=== PATIENT | female | born 1950 | race Caucasian/White ===

== ENCOUNTER 2018-03-22 10:57 | Emergency (ER) | payer OTHER, MEDICARE ==
[~2018-03-22] VITALS: Ht 167.6 cm; Wt 68.0 kg
[~2018-03-22 10:57] MED LIST: TRAMADOL HCL50 M1 PO
--- NOTE | 2018-03-22 11:21 | ED UPPER/LOWER EXTREMITY COMPL ---
History of Present Illness General Chief Complaint: Shoulder Injury Stated Complaint: LT SHOULDER PAIN NO INJURY Source: patient Exam Limitations: no limitations Vital Signs & Intake/Output Vital Signs & Intake/Output Vital Signs Date Time Temp Pulse Resp B/P B/P Pulse O2 O2 Flow FiO2 Mean Ox Delivery Rate 03/22 1335 95 Room Air 03/22 1329 97.4 78 18 164/86 95 Room Air 03/22 1120 98.2 83 16 167/88 98 Room Air Room Air Allergies Coded Allergies: cortisone (Intermediate, RED RASH 06/19/17) prednisone (Intermediate, RED RASH 06/19/17) Reconcile Medications Cyclobenzaprine HCl 10 MG TABLET 1 TAB PO TID SPASMS Oxycodone HCl/Acetaminophen (Percocet 5-325 MG Tablet) 5 MG-325 MG TABLET 1-2 TAB PO BID pain Tramadol HCl 50 MG TABLET 1 TAB PO Q6P PRN pain Triage Note: PT TO TRIAGE FOR LEFT SHOULDER PAIN. PAIN STARTED MONDAY AND INCREASED TO MONDAY. PT STATES IT GOT BETTER YESTERDAY BUT TODAY IS MUCH WORSE. PAIN IS FROM HER NECK TO HER LEFT DELTOID PT HAS A PHX HTN Triage Nurses Notes Reviewed? yes Onset: Abrupt Duration: day(s): Timing: recent history Severity: moderate, severe Pain/Injury Location: Bilateral: Shoulder, Other (NECK). Method of Injury: unknown No Modifying Factors: none HPI: 67-year-old female comes into the emergency room for further evaluation of left shoulder pain. Patient reports that the symptoms started over this past weekend. They got better yesterday and then worse today. She denies any injury. Pain is located on the left posterior aspect of her shoulder and radiates up into her neck area. It is worse with certain movements. She's been taking Advil at home with no relief. She denies any falls or trauma. Denies any fever chills. Comes in for further evaluation. Past History Travel History Traveled to [place] past 21 day No Medical History Any Pertinent Medical History? see below for history Neurological: NONE EENT: NONE Cardiovascular: hypertension Respiratory: NONE Gastrointestinal: NONE Hepatic: NONE Renal: NONE Musculoskeletal: NONE Psychiatric: anxiety Endocrine: NONE Blood Disorders: NONE Cancer(s): BASAL AND SQUAMUS CELL LATHE HAND/Reproductive: NONE Surgical History Surgical History: none Psychosocial History What is your primary language Irish Tobacco Use: Never used ETOH Use: denies use Illicit Drug Use: denies illicit drug use Family History Hx Contributory? No Review of Systems Review of Systems Constitutional: Reports: no symptoms. EENTM: Reports: no symptoms. Respiratory: Reports: no symptoms. Cardiovascular: Reports: no symptoms. Gastrointestinal/Abdominal: Reports: no symptoms. Genitourinary: Reports: no symptoms. Musculoskeletal: Reports: see HPI. Skin: Reports: no symptoms. Neurological/Psychological: Reports: no symptoms. Hematologic/Endocrine: Reports: no symptoms. Immunological: Reports: no symptoms. All Other Systems: Reviewed and Negative Physical Exam Physical Exam General Appearance: well developed/nourished, mild distress Head: atraumatic Eyes: Bilateral: normal appearance. Ears, Nose, Throat: normal ENT inspection, hearing grossly normal Neck: normal inspection, supple, full range of motion Cardiovascular/Respiratory: no respiratory distress Back: normal inspection Shoulder Left: soft tissue tenderness, tenderness over left trapezius muscle, full range of motion, negative empty can, negative [place] and apprehension test , Neurologic/Tendon: normal sensation, normal motor functions, normal tendon functions, responds to pain, no evidence tendon injury, no pulse deficit Skin: intact, normal color, warm/dry Progress Differential Diagnosis: dislocation, fracture, sprain, tendon injury, muscle strain, cervical disc herniation Plan of Care: Orders Procedure Date/time Status Durable Medical Equipment 03/22 1317 Active Diagnostic Imaging: Viewed by Me: Radiology Read. Discussed w/RAD: Radiology Read. Radiology Impression: PATIENT: RAKEL CORREIA PRESENT AGE: 67 PATIENT ACCOUNT NO: [id number] : 48 LOCATION: [facility] ORDERING PHYSICIAN: Hernandez HAHN SERVICE DATE: 03/22/18 EXAM TYPE : RAD - XRY-CERV SPINE 4 OR 5 VIEWS; XRY-SHOULDER COMPLETE-LEFT EXAMINATION: XR CERVICAL SPINE XR SHOULDER, LEFT CLINICAL INFORMATION: 67-year-old female presented with neck and shoulder pain. COMPARISON: None. TECHNIQUE: 5 views of the cervical spine and 4 views of the left shoulder were obtained. FINDINGS: CERVICAL SPINE: Grade 1 anterolisthesis of C4 over C5 and C5 over C6. The height of the cervical vertebrae are well maintained. The posterior appendages are intact. [id number] degenerative spondylosis is seen at C6-C7 and mild degenerative spondylosis at C5-C6. The prevertebral soft tissues are unremarkable. Moderate bilateral foraminal narrowing is noted at C3-C4 through C7-T1. The C1-C2 alignment is intact. Both lung apices are clear. LEFT SHOULDER: The glenohumeral and acromioclavicular alignments are intact. Mild degenerative osteoarthrosis is seen at the glenohumeral as well as acromioclavicular joints. There is no evidence of any fracture or subluxation present. The soft tissues are unremarkable. Visualized lung field within the left upper hemithorax is clear. IMPRESSION: 1. Grade 1 anterolisthesis of C4 over C5 and C5 over C6. 2. [id number]-eggdbldq degenerative spondylosis at C6-C7 and mild degenerative spondylosis at C5-C6. 3. Moderate bilateral foraminal narrowing at C3-C4 through C7-T1. 4. Mild degenerative osteoarthrosis at the glenohumeral and acromioclavicular joints. DICTATED BY: Donaldo Han MD DATE/TIME DICTATED:05/01 ENGINEER SYSTEMS:[employer] DATE/TIME TRANSCRIBED:03/22/181236 CONFIDENTIAL, DO NOT COPY WITHOUT APPROPRIATE AUTHORIZATION. <Electronically signed in Other Vendor System> SIGNED BY: Donaldo Han MD 03/22/18 1258 Departure Departure Disposition: HOME OR SELF CARE Condition: Stable Clinical Impression Primary Impression: Muscle spasm of left shoulder Secondary Impressions: Arthritis Referrals: Camryn Borrego (Family) Apoorva DOMINGUEZ,Josep Patel Additional Instructions: Take Percocet and Flexeril as prescribed. Follow-up with primary care doctor. Return if any concerns worsening symptoms. Follow-up with orthopedic doctor provided. Please go over all results of today's visit with your primary care doctor. Contact your primary care doctor to let them know you were here in the emergency room. There may be nonspecific findings which may not be related to your visit today here in the emergency room but may require further evaluation and chronic monitoring by your primary care doctor. If you had a laceration today the chance of foreign body always remains. You should follow-up with your primary care doctor for recheck in 3-5 days for a wound check. If you had an x-ray done there is a chance that a fracture could have been missed on initial read and you should follow-up with your primary care doctor for repeat x-rays if symptoms persist. If your blood pressure was elevated here in the emergency room please have rechecked by josé miguel primary care doctor within the next 48. If you were prescribed a narcotic here in the emergency room or any type of controlled substances you're not allowed to drive while taking this medication or operate any type of heavy machinery. Narcotics can make you feel lightheaded dizziness nausea and can cause constipation. You may need to sampler pickup a stool softener. Thank you for choosing [facility] emergency room. Please return to the emergency room immediately if you have any other concerns worsening of symptoms. Departure Forms: Customer Survey General Discharge Information Prescriptions: Current Visit Scripts Oxycodone HCl/Acetaminophen (Percocet 5-325 MG Tablet) 1-2 TAB PO BID #15 TAB Cyclobenzaprine HCl 1 TAB PO TID #30 TAB Comments 03/22/2018 3:56:02 PM Patient clinically looks well. Patient is no apparent distress. Patient is nontoxic-appearing. Symptoms are most consistent with musculoskeletal pain. Reproducible. Worse with range of motion. No signs of motor weakness in upper extremities. She was referred back to her PCP for outpatient MRI of cervical spine. Treated with oral medication to treat muscle spasming/pain. Patient was seen by Dr. Roblero. She understands and agrees with plan of care. Procedures Splinting Location: LEFT SHOULDER Manual Alignment Performed: No Pre-Made Type: SHOULDER IMMOBILIZER Splint Applied By: splint applied by me Pre-Proc Neuro Vasc Exam: normal Post-Proc Neuro Vasc Exam: normal
--- NOTE | 2018-03-22 12:58 | RADIOLOGY REPORT ---
EXAMINATION: XR CERVICAL SPINE XR SHOULDER, LEFT CLINICAL INFORMATION: 67-year-old female presented with neck and shoulder pain. COMPARISON: None. TECHNIQUE: 5 views of the cervical spine and 4 views of the left shoulder were obtained. FINDINGS: CERVICAL SPINE: Grade 1 anterolisthesis of C4 over C5 and C5 over C6. The height of the cervical vertebrae are well maintained. The posterior appendages are intact. Ouuv-fw-[id number] degenerative spondylosis is seen at C6-C7 and mild degenerative spondylosis at C5-C6. The prevertebral soft tissues are unremarkable. Moderate bilateral foraminal narrowing is noted at C3-C4 through C7-T1. The C1-C2 alignment is intact. Both lung apices are clear. LEFT SHOULDER: The glenohumeral and acromioclavicular alignments are intact. Mild degenerative osteoarthrosis is seen at the glenohumeral as well as acromioclavicular joints. There is no evidence of any fracture or subluxation present. The soft tissues are unremarkable. Visualized lung field within the left upper hemithorax is clear. IMPRESSION: 1. Grade 1 anterolisthesis of C4 over C5 and C5 over C6. 2. [id number]-[id number] degenerative spondylosis at C6-C7 and mild degenerative spondylosis at C5-C6. 3. Moderate bilateral foraminal narrowing at C3-C4 through C7-T1. 4. Mild degenerative osteoarthrosis at the glenohumeral and acromioclavicular joints.
[2018-03-22] MEDS ORDERED: PERCOCET 5-3251 EACH PO (13:18)
[2018-03-22] MEDS ORDERED: CYCLOBENZAPRINE10 M1 PO (13:18)
[2018-03-22 13:29] VITALS: BP 164/86
== END 2018-03-22 13:36 ==
LOC: ERH 10:57
DX: M62.838 Other muscle spasm (principal); M19.012 Primary osteoarthritis, left shoulder
CPT/HCPCS: 72050; 73030-LT